=== PATIENT | female | born 1985 | race Caucasian/White ===

== ENCOUNTER 2017-08-07 14:48 | Emergency (ER) | payer MEDICAID, OTHER ==
[~2017-08-07] VITALS: Ht 165.1 cm; Wt 56.7 kg
[2017-08-07 14:52] VITALS: BP 110/77
--- NOTE | 2017-08-07 14:58 | NUR ---
PT AMBULATED TO BED 6.
--- NOTE | 2017-08-07 15:03 | NUR ---
ER MD DR. ROONEY EVALUATING PT AT BEDSIDE.
--- NOTE | 2017-08-07 15:06 | NUR ---
32F BIB FAMILY C/O RT LEG PAIN, TIGHTNESS, NON-RADIATING, 7 X YESTERDAY S/P FALL AT [facility]; PT STATES " THERE WAS OIL ON THE FLOOR AND I DIDN'T SEE IT"; PT STATES NO LOC AT TIME OF INCIDENT; SMALL, RED DISCOLORATION TO RT KNEE AT THIS TIME; RT PEDAL PULSE + 2, RT CAP REFILL IMMEDIATE, NO LOSS OF SENSATION TO RT LEG AT THIS TIME; PT AA&OX4, PERRLA, BL LUNG SOUNDS CLEAR, RR EVEN/UNLABORED, SKIN IS WARM/DRY/INTACT AT THIS TIME; STEADY GAIT; PT RESTING IN BED WITH HOB ELEVATED AND IN LOWEST POSITION; POSITIONED FOR COMFORT; ER MD MADE AWARE OF STATUS. WILL CONTINUE TO MONITOR.
[2017-08-07 15:47] VITALS: BP 110/77
== END 2017-08-07 15:48 | disposition home or self-care (01) ==
LOC: MED 14:48
DX: S80.11XA Contusion of right lower leg, initial encounter (principal); J45.909 Unspecified asthma, uncomplicated; W01.0XXA Fall on same level from slipping, tripping and stumbling without subsequent striking against object, initial encounter; Y93.89 Activity, other specified; Y92.524 Gas station as the place of occurrence of the external cause; Y99.8 Other external cause status
CPT/HCPCS: 99283

== ENCOUNTER 2017-10-20 21:29 | Emergency (ER) | payer OTHER ==
[~2017-10-20] VITALS: Ht 165.1 cm; Wt 55.1 kg
[2017-10-20 21:42] VITALS: BP 110/64
--- NOTE | 2017-10-20 21:53 | NUR ---
PT TAKEN TO OF
--- NOTE | 2017-10-20 22:25 | NUR ---
LEFT ARM PAIN SINCE LAST NIGHT, PT STATES SHE TRIPPED OVER CORD AND FELL ON ARM. 10/10 PAIN, SHARP, PAIN FROM LEFT WRIST TO LEFT ELBOW. SWELLING NOTED, NO OPEN SKIN OR REDNESS NOTED. CMS INTACT.
[2017-10-20] MEDS ORDERED: IBUPROFEN 800 MG TAB PO ONE (22:30)
[2017-10-20] MEDS ORDERED: HYDROcodone/APAP 5/325 MG 1 TAB TAB PO ONE (22:30)
[2017-10-20 23:06] VITALS: BP 110/60
--- NOTE | 2017-10-20 23:07 | NUR ---
Patient discharged with v/s stable. Written and verbal after care instructions given and explained. Patient alert, oriented and verbalized understanding of instructions. Ambulatory with steady gait. All questions addressed prior to discharge. ID band removed. Patient advised to follow up with PMD. Rx of PERCOCET, NAPROXEN given. Patient educated on indication of medication including possible reaction and side effects. Opportunity to ask questions provided and answered.
== END 2017-10-20 23:07 | disposition home or self-care (01) ==
LOC: MED 21:29
DX: S52.602A Unspecified fracture of lower end of left ulna, initial encounter for closed fracture (principal); J45.909 Unspecified asthma, uncomplicated; W01.0XXA Fall on same level from slipping, tripping and stumbling without subsequent striking against object, initial encounter; Y93.89 Activity, other specified; Y92.89 Other specified places as the place of occurrence of the external cause; Y99.8 Other external cause status
CPT/HCPCS: 73090; 73110; 99284

== ENCOUNTER 2017-10-26 21:52 | Emergency (ER) | payer SELFPAY ==
--- NOTE | 2017-10-26 22:00 | NUR ---
PATIENT CALLED TO BE TRIAGE, NO RESPONSE , AND SHE TOLD TO THE ADMITTING STAFF TO SEE HER PMD IN MORNING. PATIENT LEFT WITHOUT BEING SEEN BY DR. OH. NO FURTHER CARE PROVIDED FOR PATIENT.
== END 2017-10-26 22:00 | disposition left against medical advice (07) ==
LOC: MED 21:52
DX: R06.02 Shortness of breath (principal); Z53.21 Procedure and treatment not carried out due to patient leaving prior to being seen by health care provider

== ENCOUNTER 2021-03-28 16:15 | Emergency (ER) | payer MEDICAID ==
[~2021-03-28] VITALS: Ht 167.6 cm; Wt 54.4 kg
[2021-03-28 16:25] VITALS: BP 127/82
--- NOTE | 2021-03-28 16:25 | NUR ---
PT W/C ASSISTED TO BED 4.
--- NOTE | 2021-03-28 17:04 | NUR ---
35/F presents to ED with c/o vaginal bleeding. Per patient, she states she is currently 8 weeks and states she noticed spotting since this morning. Patient denies abdominal pain, nausea, vomiting or dysuria. Denies chest pain or shortness of breath, states she has been taking her vitamins and has an appointment to see her OB doctor next week. Patient is A0
--- NOTE | 2021-03-28 17:40 | NUR ---
Ultrasound at bedside
[2021-03-28 17:46] LABS: BASOPHILS # (AUTO) 0.1 K/uL (0.00-0.22); BASOPHILS % (AUTO) 0.8 % (0.0-2.0); EOSINOPHILS # (AUTO) 0.1 K/uL (0-0.4); EOSINOPHILS % (AUTO) 2.1 % (0.0-4.0); HEMATOCRIT 38.8 % (36-48); LYMPHOCYTES # (AUTO) 2.4 K/uL (2.5-16.5); LYMPHOCYTES % (AUTO) 37.6 % (20.5-51.1); MEAN CORPUSCULAR HEMOGLOBIN 30 pg (27-31); MEAN CORPUSCULAR HGB CONC 34 g/dL (33-37); MEAN CORPUSCULAR VOLUME 89.9 fL (80-94); MONOCYTES # (AUTO) 0.8 K/uL (0.8-1.0); MONOCYTES % (AUTO) 11.8 % (1.7-9.3); NEUTROPHILS # (AUTO) 3.1 K/uL (1.8-7.7); NEUTROPHILS % (AUTO) 47.7 % (42.2-75.2); PLATELET COUNT (AUTO) 387 K/uL (140-450); RED BLOOD CELL COUNT(AUTO) 4.31 MIL/uL (4.20-5.40); RED CELL DISTRIBUTION WIDTH 14.2 % (11.6-13.7); WHITE BLOOD COUNT (AUTO) 6.5 K/uL (4.8-10.8)
--- NOTE | 2021-03-28 19:15 | NUR ---
Pt report given to Maggie. Transfer of care at this time.
[2021-03-28 19:16] LABS: BILIRUBIN,URINE NEGATIVE (NEGATIVE); BLOOD, URINE 3+ (NEGATIVE); COLOR,URINE YELLOW (YELLOW); LEUKOCYTE ESTERASE ,URINE 1+ (NEGATIVE); NITRITE, URINE NEGATIVE (NEGATIVE); PH,URINE 7.5 (5.0-9.0); UGLUCOSE NEGATIVE (NEGATIVE)
[2021-03-28 20:09] LABS: APPEARANCE,URINE HAZY (CLEAR)
[2021-03-28 20:15] LABS: RBC,URINE 0-5 /HPF (0-5)
--- NOTE | 2021-03-28 20:15 | NUR ---
AMBULATING IN ER WITH STEADY GAIT, PREPARING FOR DISCHARGE
[2021-03-28] MEDS ORDERED: PYRI25TA15 PO (20:22)
[2021-03-28] MEDS ORDERED: CEPH-588 PO (20:22)
[2021-03-28 20:26] VITALS: BP 115/65
--- NOTE | 2021-03-28 20:27 | NUR ---
Patient discharged with v/s stable. Written and verbal after care instructions given and explained. Patient verbalized understanding. Ambulatory with steady gait. All questions addressed prior to discharge. Advised to follow up with PMD.
== END 2021-03-28 20:26 | disposition home or self-care (01) ==
LOC: MED 16:15
DX: O20.0 Threatened abortion (principal); O23.41 Unspecified infection of urinary tract in pregnancy, first trimester; O99.511 Diseases of the respiratory system complicating pregnancy, first trimester; J45.909 Unspecified asthma, uncomplicated; Z3A.08 8 weeks gestation of pregnancy; Z79.2 Long term (current) use of antibiotics; Z79.899 Other long term (current) drug therapy
CPT/HCPCS: 36415; 76817; 81001; 81025; 84702; 85025; 86900; 86901; 87086; 99284

== ENCOUNTER 2021-08-10 19:31 | Emergency (ER) | payer MEDICAID ==
[~2021-08-10] VITALS: Ht 165.1 cm; Wt 53.5 kg
[~2021-08-10 19:31] MED LIST: CEPH-588 PO; PYRI25TA15 PO
[2021-08-10 19:37] VITALS: BP 118/85
--- NOTE | 2021-08-10 19:41 | NUR ---
PATIENT TO [facility]
[2021-08-10] MEDS ORDERED: AMOXIL/CLAVULANATE 875/125 MG 1 TAB PO SCH (20:20)
[2021-08-10] MEDS ORDERED: AMOX-1000 PO (20:22)
[2021-08-10 21:05] VITALS: BP 132/72
--- NOTE | 2021-08-10 21:08 | NUR ---
PATIENT DC HOME FEELING GOOD VITALS SIGNS IN NORMAL LIMITS ALL DC INSTRUCTION GAVE AND EXPLAINED //Nallely CONNER
== END 2021-08-10 21:10 | disposition home or self-care (01) ==
LOC: MED 19:31
DX: T19.2XXA Foreign body in vulva and vagina, initial encounter (principal); J45.909 Unspecified asthma, uncomplicated; X58.XXXA Exposure to other specified factors, initial encounter; Y93.89 Activity, other specified; Y92.89 Other specified places as the place of occurrence of the external cause; Y99.8 Other external cause status
CPT/HCPCS: 99284

== ENCOUNTER 2022-05-19 14:30 | Emergency (ER) | payer MEDICAID ==
[~2022-05-19] VITALS: Ht 162.6 cm; Wt 54.4 kg
[2022-05-19 14:39] VITALS: BP 122/74
--- NOTE | 2022-05-19 14:40 | NUR ---
David haynes in [facility] - 05/19/22 at 1443 by [email or web address] CALLED X1. NO SHOW
--- NOTE | 2022-05-19 15:07 | NUR ---
Patient discharged with v/s stable. verbal after care instructions given and explained. Patient verbalized understanding. Ambulatory with steady gait. All questions addressed prior to discharge. Advised to follow up with PMD.
== END 2022-05-19 15:07 | disposition home or self-care (01) ==
LOC: MED 14:30
DX: S80.212A Abrasion, left knee, initial encounter (principal); S80.211A Abrasion, right knee, initial encounter; R41.82 Altered mental status, unspecified; J45.909 Unspecified asthma, uncomplicated; Y04.0XXA Assault by unarmed brawl or fight, initial encounter; Y93.89 Activity, other specified; Y92.89 Other specified places as the place of occurrence of the external cause; Y99.8 Other external cause status
CPT/HCPCS: 99283

== ENCOUNTER 2023-09-23 17:12 | Emergency (ER) | payer BC, MEDICAID ==
[~2023-09-23] VITALS: Ht 165.1 cm; Wt 49.0 kg
[2023-09-23 17:40] VITALS: BP 120/76; PULSE 88; RESP 18; TEMP 97.6; O2SAT 100
[2023-09-23 18:25] LABS: APPEARANCE,URINE CLEAR (CLEAR); BILIRUBIN,URINE NEGATIVE (NEGATIVE); BLOOD, URINE NEGATIVE (NEGATIVE); COLOR,URINE YELLOW (YELLOW); LEUKOCYTE ESTERASE ,URINE 1+ (NEGATIVE); NITRITE, URINE NEGATIVE (NEGATIVE); PROTEIN,URINE NEGATIVE (NEGATIVE); UGLUCOSE NEGATIVE (NEGATIVE)
[2023-09-23 18:28] LABS: BACTERIA,URINE 10-30 (MOD) /HPF (None Seen); RBC,URINE 0-5 /HPF (0-5)
[2023-09-23] MEDS ORDERED: NITR100C7 PO (21:06)
== END 2023-09-23 22:22 | disposition home or self-care (01) ==
LOC: MED 17:12
DX: O20.0 Threatened abortion (principal); O23.41 Unspecified infection of urinary tract in pregnancy, first trimester; O99.511 Diseases of the respiratory system complicating pregnancy, first trimester; J45.909 Unspecified asthma, uncomplicated; Z3A.01 Less than 8 weeks gestation of pregnancy; Z98.890 Other specified postprocedural states; Z79.2 Long term (current) use of antibiotics
CPT/HCPCS: 81001; 81025; 87086; 99283

== ENCOUNTER 2023-11-17 12:54 | Emergency (ER) | payer BC ==
[~2023-11-17] VITALS: Ht 165.1 cm; Wt 56.7 kg
[~2023-11-17 12:54] MED LIST changes: -CEPH-588 PO; +NITR100C7 PO; -PYRI25TA15 PO
[2023-11-17 12:59] VITALS: BP 141/90; PULSE 110; RESP 18; TEMP 98; O2SAT 99
[2023-11-17 13:40] VITALS: BP 141/90; PULSE 110; RESP 18; TEMP 98; O2SAT 99
[2023-11-17] MEDS ORDERED: ACET-10509 PO (13:50)
[2023-11-17] MEDS ORDERED: CEPH-588 PO (13:51)
[2023-11-17] MEDS: ACETAMINOPHEN EXTRA STRENGTH 500 MG TAB PO ONE (13:55)
== END 2023-11-17 14:01 | disposition home or self-care (01) ==
LOC: MED 12:54
DX: O9A.211 Injury, poisoning and certain other consequences of external causes complicating pregnancy, first trimester (principal); O99.511 Diseases of the respiratory system complicating pregnancy, first trimester; S16.1XXA Strain of muscle, fascia and tendon at neck level, initial encounter; O23.41 Unspecified infection of urinary tract in pregnancy, first trimester; N39.0 Urinary tract infection, site not specified; Z3A.01 Less than 8 weeks gestation of pregnancy; X58.XXXA Exposure to other specified factors, initial encounter; Y93.89 Activity, other specified; Y92.89 Other specified places as the place of occurrence of the external cause; Y99.8 Other external cause status
CPT/HCPCS: 81002; 81025; 99283

== ENCOUNTER 2024-04-25 13:38 | Inpatient (IN) | payer MEDICAID ==
[~2024-04-25] VITALS: Ht 165.1 cm; Wt 79.4 kg
[~2024-04-25 13:38] MED LIST changes: +ACET-10509 PO; +CEPH-588 PO
[2024-04-25] MEDS ORDERED: PNV91TAB8 PO (14:29)
[2024-04-25] MEDS ORDERED: LACTATED RINGERS 500 ML IV ONE (15:05)
[2024-04-25] MEDS ORDERED: CARBOPROST 250 MCG/ML AMP IM PRN (15:05)
[2024-04-25] MEDS ORDERED: METHYLERGONOVINE 0.2 MG/ML AMP IM PRN (15:05)
[2024-04-25] MEDS ORDERED: OXYTOCIN 10 UNITS/ML VIAL IM SCH (15:05)
[2024-04-25] MEDS ORDERED: AMPICILLIN 2,000 MG VIAL ONE (15:36)
[2024-04-25 15:39] LABS: BASOPHILS % (AUTO) 0.5 % (0.0-2.0); EOSINOPHILS # (AUTO) 0.1 K/uL (0-0.4); EOSINOPHILS % (AUTO) 1.6 % (0.0-4.0); HEMATOCRIT 35.1 % (36-48); HEMOGLOBIN 11.6 g/dL (12.0-16.0); LYMPHOCYTES # (AUTO) 1.5 K/uL (2.5-16.5); LYMPHOCYTES % (AUTO) 17.1 % (20.5-51.1); MEAN CORPUSCULAR HEMOGLOBIN 27 pg (27-31); MEAN CORPUSCULAR HGB CONC 33 g/dL (33-37); MEAN CORPUSCULAR VOLUME 82.8 fL (80-94); MONOCYTES % (AUTO) 11.2 % (1.7-9.3); NEUTROPHILS # (AUTO) 6.3 K/uL (1.8-7.7); NEUTROPHILS % (AUTO) 69.6 % (42.2-75.2); PLATELET COUNT (AUTO) 462 K/uL (140-450); RED BLOOD CELL COUNT(AUTO) 4.24 MIL/uL (4.20-5.40); RED CELL DISTRIBUTION WIDTH 17.7 % (11.6-13.7)
[2024-04-25] MEDS: AMPICILLIN 2,000 MG in NACL 0.9% MINI-BAG PLUS 100 ML IV SCH (15:42)
[2024-04-25] MEDS: MISOPROSTOL 25 MCG TAB VG SCH (15:45)
[2024-04-25 15:53] LABS: ANION GAP 11.5 (8-16); CALCIUM 8.9 mg/dL (8.5-10.1); CARBON DIOXIDE 26.2 mmol/L (21-32); CREATININE 0.5 mg/dL (0.6-1.3); POTASSIUM 3.7 mmol/L (3.5-5.1); TOTAL BILIRUBIN 0.4 mg/dL (0.0-1.0); TOTAL PROTEIN, SERUM 6.1 g/dL (6.4-8.2)
[2024-04-25] MEDS: LACTATED RINGERS 1,000 ML IV SCH (16:48)
[2024-04-25] MEDS: MISOPROSTOL 25 MCG TAB PO SCH (20:02)
[2024-04-25] MEDS: AMPICILLIN 1,000 MG in NACL 0.9% MINI-BAG PLUS 50 ML IV SCH (20:02)
[2024-04-25] MEDS ORDERED: AMPICILLIN 1,000 MG VIAL ONE (23:39)
[2024-04-26] MEDS: AMPICILLIN 1,000 MG VIAL ONE (00:02)
[2024-04-26] MEDS: ONDANSETRON 4 MG/2 ML VIAL IVP PRN (00:09)
[2024-04-26] MEDS: NALBUPHINE 10 MG/ML AMP IVP PRN (00:10)
[2024-04-26] MEDS ORDERED: OXYTOCIN/0.9 % SODIUM CHLORIDE 500 ML IV SCH (01:25)
[2024-04-26] MEDS: OXYTOCIN/0.9 % SODIUM CHLORIDE 500 ML IV ONE (01:29)
[2024-04-26] MEDS ORDERED: METHYLERGONOVINE 0.2 MG TAB PO PRN (01:55)
[2024-04-26] MEDS ORDERED: IBUPROFEN 800 MG TAB PO PRN (01:55)
[2024-04-26] MEDS ORDERED: oxyCODONE/APAP 5/325 MG 1 TAB TAB PO PRN ×2 (01:55)
[2024-04-26] MEDS ORDERED: TEMAZEPAM 15 MG CAP PO PRN (01:55)
[2024-04-26] MEDS ORDERED: BENZOCAINE/MENTHOL 20%-0.5% 60 GM CAN TP PRN (01:55)
[2024-04-26] MEDS ORDERED: METHYLERGONOVINE 0.2 MG/ML AMP IM PRN (01:55)
[2024-04-26] MEDS ORDERED: OXYTOCIN 10 UNITS/ML VIAL IM PRN (01:55)
[2024-04-26] MEDS ORDERED: ROPIVACAINE 0.2%/NS PREMIX 0 ML EPI ONE (02:23)
[2024-04-26 03:27] LABS: APPEARANCE,URINE CLEAR (CLEAR); BILIRUBIN,URINE NEGATIVE (NEGATIVE); BLOOD, URINE NEGATIVE (NEGATIVE); COLOR,URINE YELLOW (YELLOW); LEUKOCYTE ESTERASE ,URINE TRACE (NEGATIVE); NITRITE, URINE NEGATIVE (NEGATIVE); PROTEIN,URINE NEGATIVE (NEGATIVE); UGLUCOSE NEGATIVE (NEGATIVE); UROBILINOGEN,URINE 0.2 EU/dL (0.2 - 1)
[2024-04-26 03:31] LABS: BACTERIA,URINE 10-30 (MOD) /HPF (None Seen); MUCUS,URINE 1+ /LPF (None Seen); RBC,URINE 0-5 /HPF (0-5); SQUAMOUS EPITHELIAL CELL,UR 0-3 (FEW) /LPF (0-3 (FEW))
[2024-04-26 03:41] LABS: AMPHETAMINE, URINE POSITIVE ng/ml (NEG <=1000); BARBITURATE, URINE NEGATIVE ng/ml (NEG <=200); BENZODIAZEPINE, URINE NEGATIVE ng/mL (NEG <=200); CANNABINOID, URINE NEGATIVE ng/mL (NEG <=50); COCAINE, URINE NEGATIVE ng/mL (NEG <=300); OPIATE, URINE NEGATIVE ng/mL (NEG <=2000); PHENCYCLIDINE SCREEN,URINE NEGATIVE ng/mL (NEG <=25)
[2024-04-26] MEDS ORDERED: DOCUSATE SOD/SENNA 50/8.6 MG 1 TAB PO SCH (21:00)
== END 2024-04-26 14:55 | disposition home or self-care (01) | DRG 560 ==
LOC: MLD 13:38 → OBSVTOIN 13:38 → MFCC 04-26 04:40
PROVIDERS: ADMIT Obstetrics & Gynecology; ATTEND Obstetrics & Gynecology
PROC: 10E0XZZ Delivery of Products of Conception, External Approach (ICD-10-PCS; principal; 2024-04-26)
DX: O42.02 Full-term premature rupture of membranes, onset of labor within 24 hours of rupture (principal); Z37.0 Single live birth; Z3A.37 37 weeks gestation of pregnancy
CPT/HCPCS: 36415; 59200; 59409; 80053; 80305; 81001; 85025; 86592; 86762; 86886; 86900; 86901; 87086; 87340; J0290; J2300; J2405; J2590; J2795; J7120